=== PATIENT | male | born 1950 | race Two or more races ===

== ENCOUNTER 2018-07-16 12:36 | Emergency (ER) | payer OTHER ==
[~2018-07-16] VITALS: Ht 167.6 cm; Wt 62.1 kg
[2018-07-16 12:41] VITALS: BP 156/95
== END 2018-07-16 13:54 | disposition home or self-care (01) ==
LOC: ER 12:36
DX: E11.9 Type 2 diabetes mellitus without complications (principal); Z76.0 Encounter for issue of repeat prescription